=== PATIENT | male | born 1940 | race Asian ===

== ENCOUNTER 2020-10-25 14:18 | Outpatient (CLI) | payer MEDICARE, SELFPAY ==
--- NOTE | ~2020-10-25 | CT_ITS ---
EXAMINATION: CT abdomen pelvis wo con DATE: 10/25/2020 14:57 INDICATION: Erectile dysfunction due to arterial insufficiency TECHNIQUE: Computed tomography (CT) of the abdomen and pelvis was performed without intravenous contr ast. The dose-length product (DLP) was 1402.78 mGy-cm. Automated exposure control and iterative recon struction technique were employed. COMPARISON: 01/21/2015 FINDINGS: Stable nodules of the visualized lung bases are consistent with old granulomatous disease. Also noted is a calcified pleural plaque in the right posterior costophrenic angle. The heart size is normal. There is calcified coronary artery atherosclerosis. There is a stable 1.6 cm cyst of the reymundo er. The spleen, pancreas, gallbladder, and adrenal glands are normal. Cysts of the kidneys measure up to 3.6 cm on the left. 5 mm nonobstructing stone of the left kidney. There is calcified atherosclero sis of the aorta and many of the other arteries. No pathologically enlarged abdominal or pelvic lymph nodes are identified. Colonic diverticulosis is present without evidence of diverticulitis. There is moderate enlargement of the prostate. Severe lower thoracic and lumbar spondylosis is noted. A penil e prosthesis is noted. The reservoir in the right inguinal region is collapsed. IMPRESSION: 1. No acute abnormalities of the abdomen or pelvis. 2. Stable left nephrolithiasis. Reviewed, dictated and finalized at location A. [employer]
== END 2020-10-25 14:19 | disposition home or self-care (01) ==
PROVIDERS: Visit Provider Urology
DX: N52.9 Male erectile dysfunction, unspecified (principal); N20.0 Calculus of kidney
CPT/HCPCS: 74176

== ENCOUNTER 2021-02-07 16:13 | Outpatient (CLI) | payer MEDICARE, SELFPAY ==
--- NOTE | ~2021-02-07 | MR_ITS ---
EXAMINATION: MR shoulder LT wo con DATE: 02/07/2021 17:41 INDICATION: Shoulder pain TECHNIQUE: Magnetic resonance imaging (MRI) of the left shoulder was performed without intravenous co ntrast. Sequences included axial PD-weighted FS FSE, coronal oblique PD-weighted FS FSE and coronal o blique T2-weighted FS FSE. Patient was unable to complete the examination prior to obtaining the sagi ttal sequences. COMPARISON: None. FINDINGS: Coracoacromial arch: The acromion undersurface is curved in morphology (type II) small anterior subacromial spur. There is thickening of the central portion of the coracoacromial ligament. Moderate acromioclavicular osteoar thritis. Rotator cuff: 3-4 mm globular region of nearly absent signal at the anterior and distal most supraspinatus tendon n ear its confluence with the transverse humeral ligament at the cephalad aspect of the lateral rim of the intertubercular groove likely representing calcific tendinitis. Suggestion of an additional tiny amount of calcific tendinitis along the bursal side rim of the greater tuberosity insertion of the p osterior supraspinatus and conjoined portion of the supraspinatus and infraspinatus tendons. Severe s upraspinatus tendinopathy with bursal sided fraying but without a well-defined measurable tear defect . Moderate tendinopathy at the conjoined portion of the supraspinatus and infraspinatus tendons with small moderate severity partial-thickness articular sided tear at the junction of the anterior superi or facet footplates which measures 4 mm AP, approximately 1 cm medial to lateral and involving up to two thirds of the tendon thickness. Mild tendinopathy of the more posterior infraspinatus tendon. The teres minor tendon is normal. Moderate tendinopathy without discrete tear at the cephalad lesser tub erosity insertion of the subscapularis tendon. Normal rotator cuff muscle bulk and signal. Biceps tendon, glenoid labrum and glenohumeral cartilage: Long head of the biceps tendon is normal. There is a subtle tear at the 12-11:00 position of the supe rior to posterior superior glenoid labrum. There is an additional subtle linear tear at the 9:00 posi tion posteriorly. It is unclear whether there is involvement of the intervening posterior superior la april. The posterior inferior labrum appears mildly thickened with mild more amorphous increased signa l and there is mild depression of the underlying cortex along the rim of the glenoid suggesting chron ic degeneration possibly as sequela of old trauma. There is partial thickness cartilage loss with smo oth chondral surface and without degenerative subchondral changes along the cephalad half of the brandee oid and along the medial aspect of the humeral head. Fluid: Physiologic amount of fluid in the glenohumeral joint and biceps tendon sheath. No loose osteochondra l bodies. Small amount of fluid in the subacromial/subdeltoid bursa consistent with mild bursitis. Bones: Normal marrow signal with no fracture or pathologic marrow replacing process. IMPRESSION: 1. Calcific tendinitis with severe tendinopathy and bursal sided fraying at the supraspinatus tendon and moderate tendinopathy with small moderate severity partial-thickness articular sided tear at the conjoined portion of the supraspinatus and infraspinatus tendons. 2. Moderate tendinopathy without discrete tear of the cephalad subscapularis tendon. 3. Mild glenohumeral osteoarthritis with labral tear/degeneration at the superior, posterior and like ly posterior inferior labrum. 4. Moderate acromioclavicular osteoarthritis with mild underlying subacromial/subdeltoid bursitis. 5. Evaluation mildly limited by premature termination of the study prior to obtaining sagittal imagin g. Reviewed, dictated and finalized at location A. Electronically signed by David Mckee
== END 2021-02-07 16:14 | disposition home or self-care (01) ==
PROVIDERS: Visit Provider Orthopaedic Surgery
DX: M25.512 Pain in left shoulder (principal); M75.82 Other shoulder lesions, left shoulder; M19.012 Primary osteoarthritis, left shoulder; M75.52 Bursitis of left shoulder
CPT/HCPCS: 73221